=== PATIENT | female | born 1970 | race Caucasian/White ===

== ENCOUNTER 2018-02-26 13:26 | Emergency (ER) | payer MEDICAID | END 2018-02-26 17:58 | disposition left against medical advice (07) | LOC: ER 13:27 | DX: R10.9 Unspecified abdominal pain (principal); Z53.21 Procedure and treatment not carried out due to patient leaving prior to being seen by health care provider ==

== ENCOUNTER 2020-03-09 11:55 | Emergency (ER) | payer MEDICAID ==
[~2020-03-09] VITALS: Ht 162.6 cm; Wt 63.6 kg
--- NOTE | 2020-03-09 14:04 | NUR ---
bhupinder myers engged in eye assement
[2020-03-09] MEDS ORDERED: timolol 0.5% ophthalmic solution 5ml bottle LEFTEYE STA (14:22)
[2020-03-09] MEDS ORDERED: brimonidine 0.2% 5 ML ophthalmic drops LEFTEYE STA (14:22)
[2020-03-09] MEDS ORDERED: acetaZOLAMIDE IV 500mg inj IV ONE (14:25)
[2020-03-09] MEDS ORDERED: pilocarpine 2% ophthalmic drops 15ml LEFTEYE ONE (14:25)
[2020-03-09 14:27] LABS: BASOPHILS # (AUTO) 0.1 X10'3 (0-0.2); BASOPHILS % (AUTO) 1.3 % (0-1); EOSINOPHILS # (AUTO) 0.1 X10'3 (0-0.9); EOSINOPHILS % (AUTO) 2.2 % (0-6); HEMOGLOBIN 16.1 g/dl (12.0-16.0); LYMPHOCYTES # (AUTO) 1.2 X10'3 (1.1-4.8); LYMPHOCYTES % (AUTO) 23.3 % (21-51); MEAN CORPUSCULAR HEMOGLOBIN 38.1 PG (27.0-31.0); MEAN CORPUSCULAR HGB CONC 34.4 g/dL (33.0-36.5); MEAN CORPUSCULAR VOLUME 110.8 FL (78-98); MEAN PLATELET VOLUME 7.9 FL (7.4-10.4); MONOCYTES # (AUTO) 0.5 X10'3 (0-0.9); MONOCYTES % (AUTO) 10.4 % (2-12); NEUTROPHILS # (AUTO) 3.2 X10'3 (1.8-7.7); NEUTROPHILS % (AUTO) 62.8 % (42-75); PLATELET COUNT 269 X10'3 (140-440); RED BLOOD COUNT 4.24 X10'6 (4.20-5.60); RED CELL DISTRIBUTION WIDTH 13.1 % (11.5-14.5)
[2020-03-09 14:57] LABS: ALANINE AMINOTRANSFERASE 61 U/L (12-78); ALBUMIN 3.6 G/DL (3.4-5.0); ALBUMIN/GLOBULIN RATIO 0.9 (1.1-1.5); ALKALINE PHOSPHATASE 155 IU/L (46-116); ANION GAP 9 (8-16); ASPARTATE AMINO TRANSFERASE 94 U/L (10-37); BILIRUBIN,TOTAL 0.3 MG/DL (0.1-1.0); BLOOD UREA NITROGEN 5 MG/DL (7-18); BUN/CREATININE RATIO 6.9 (6.6-38.0); CALCIUM 8.7 MG/DL (8.5-10.1); CHLORIDE 107 MMOL/L (99-107); CREATININE 0.72 MG/DL (0.40-0.90); GLUCOSE 95 MG/DL (70-104); SODIUM 145 MMOL/L (135-145); TOTAL CARBON DIOXIDE 28.8 MMOL/L (24-32); TOTAL PROTEIN 7.4 G/DL (6.4-8.2); eGFR 85 ML/MIN
[2020-03-09 14:58] LABS: PLATELET ESTIMATE NORMAL
--- NOTE | 2020-03-09 15:30 | NUR ---
Per DARSHAN Rees, eye drop sequence is to be repeated 1 time before administration of acetzolamide which is to be given last, then timed for repeat tomometer assessment.
[2020-03-09] MEDS ORDERED: ACET500C47 PO (17:32)
[2020-03-09 17:49] VITALS: BP 128/87
== END 2020-03-09 17:50 | disposition home or self-care (01) ==
LOC: ER 11:56
DX: H40.2 Primary angle-closure glaucoma (principal); Z88.8 Allergy status to other drugs, medicaments and biological substances; Z79.899 Other long term (current) drug therapy
CPT/HCPCS: 36415; 70450; 80053; 85008; 85025; 85651; 96374; 99284; J1120

== ENCOUNTER 2020-09-09 12:48 | Emergency (ER) | payer MEDICAID ==
[~2020-09-09] VITALS: Ht 162.6 cm; Wt 63.6 kg
[~2020-09-09 12:48] MED LIST: ACET500C47 PO
[2020-09-09 14:06] VITALS: BP 130/83
== END 2020-09-09 21:24 | disposition left against medical advice (07) ==
LOC: ER 12:49
DX: R10.84 Generalized abdominal pain (principal); Z53.21 Procedure and treatment not carried out due to patient leaving prior to being seen by health care provider

== ENCOUNTER 2020-09-11 00:24 | Emergency (ER) | payer MEDICAID ==
[~2020-09-11] VITALS: Ht 157.5 cm; Wt 63.6 kg
[2020-09-11 00:33] VITALS: BP 145/90
== END 2020-09-11 03:40 | disposition left against medical advice (07) ==
LOC: ER 00:25
DX: R07.81 Pleurodynia (principal); Z53.21 Procedure and treatment not carried out due to patient leaving prior to being seen by health care provider

== ENCOUNTER 2021-02-27 15:27 | Emergency (ER) | payer MEDICAID ==
--- NOTE | 2021-02-27 17:36 | NUR ---
patient was called twice but not in the lobby.
== END 2021-02-27 18:14 | disposition left against medical advice (07) ==
LOC: ER 15:27
DX: Z53.21 Procedure and treatment not carried out due to patient leaving prior to being seen by health care provider (principal)

== ENCOUNTER 2022-02-23 18:01 | Emergency (ER) | payer MEDICAID ==
[~2022-02-23] VITALS: Ht 162.6 cm; Wt 68.4 kg
[2022-02-23 19:08] VITALS: BP 142/90
== END 2022-02-23 20:43 | disposition home or self-care (01) ==
LOC: ER 18:01
DX: S42.402A Unspecified fracture of lower end of left humerus, initial encounter for closed fracture (principal); W01.0XXA Fall on same level from slipping, tripping and stumbling without subsequent striking against object, initial encounter; Y93.89 Activity, other specified; Y92.89 Other specified places as the place of occurrence of the external cause; Y99.8 Other external cause status
CPT/HCPCS: 73080; 73200; 73201; 99284; 99285; A4565

== ENCOUNTER 2024-09-26 19:31 | Emergency (ER) | payer MEDICAID ==
[2024-09-26 19:38] VITALS: TEMP 96.8
--- NOTE | 2024-09-26 20:05 | Physician Documentation ---
History of Present Illness ~ Chief Complaint: Finger pain Stated Complaint: FINGER INJURY Time Seen by MD: 19:46 Primary Medical Doctor: none HPI Patient is a 54-year-old female that reports to the emergency department today for evaluation of a mechanical ground level fall sustained while running from a rattlesnake on a hill. The patient reports that she attempted to run from the rattlesnake when she tripped and fell down the hill rolling two or 3 times patient denies hitting her head reports landing on her elbow and knee along with a her right hand. Patient reports that she took a few shots of alcohol after the injury in an effort to alleviate some of the pain. 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 Physical Exam Vital Signs: Temperature: 96.8, Source: Temporal, Heart Rate: 107, Respiratory Rate: 17, BP: 135/98, Pulse Oximetry: 98 Physical Exam VITALS: Reviewed and as above. GENERAL: Alert, no apparent distress. HEENT: Normocephalic, atraumatic, PERRL, EOMI, dry mucosa, no erythema RESPIRATORY: Lungs clear, normal breath sounds, no respiratory distress. CHEST: No accessory muscle use, no retractions CV: Regular rate, rhythm, no edema, no murmur, No: JVD GI: Soft, non-tender, bowels sounds present, no rebound, guarding, or rigidity BACK: No CVA tenderness, or swelling MUSCULOSKELETAL significant deformity noted to the 2nd digit of the right hand, swelling noted to the left elbow in the left the knee, patient denies any head neck or spine tenderness SKIN: Warm and dry, abrasions noted to the left elbow in the left knee. NEURO: Oriented x4, No motor or sensory deficit PSYCH: Normal mood and affect, no agitation Procedures Procedures Manual reduction of finger Splinting Pre-Made Type: metal Splint: Pre-Proc Neuro Vasc Exam: normal Post-Proc Neuro Vasc Exam: normal Splint Placed By: Nurse Tolerated Procedure Well?: yes, no complications Procedure Note 2nd metatarsal reduction perfoemed by Dr. Modi at bedside. He has full reduction no complication. Progress Results/Orders Results/Orders Orders - CECILIA MACARIO [employer] Elbow, Complete (3vw Min) (09/26/24 19:48) Knee, Complete (09/26/24 19:48) Splint Request (09/26/24 ) Hand,Limited (Ap/Lat) (09/26/24 21:23) Completed Orders - CECILIA MACARIO [employer] Elbow, Complete (3vw Min) (09/26/24 19:48) Knee, Complete (09/26/24 19:48) Ketorolac Trometh 15mg/Ml Vial (Toradol (09/26/24 19:50) Hand,Limited (Ap/Lat) (09/26/24 21:23) Medications Received in ER Medications (Trade) Dose Ordered Sig/Briana Route PRN Reason Start Time Stop Time Status Last Admin Dose Admin ([place] 10/325mg tab) 1 tab ONCE STAT PO 09/26/24 19:36 09/26/24 19:38 DC 09/26/24 20:20 1 TAB (Toradol injection) 15 mg ONCE ONCE IM 09/26/24 19:50 09/26/24 19:51 DC 09/26/24 20:20 15 MG Vital Signs 09/26/24 09/26/24 09/26/24 19:38 20:23 20:26 Temp 96.8 Pulse 107 98 Resp 17 18 16 B/P (MAP) 135/98 131/89 (103) Pulse Ox 98 100 Medical Decision Making Findings The Pt presents with acute pain after a fall with evidence of 2nd metatarsal dislocation on XR. The Pt is otherwise well appearing without concurrent Fx, overt ligamentous tear, neurovascular injury, or compartment syndrome. Finger was reduced at bedside with oral analgesia and post reduction Xray shows successful reduction. Patient pain was controlled and patient discharged with ortho follow up. Departure Disposition: 01 HOME / SELF CARE / HOMELESS Impression: Primary Impression: Fracture of metacarpal bone Additional Impression: Dislocation of metacarpal joint Condition: Stable Referrals: NO PRIMARY CARE PROVIDER (PCP) ELENITA KERNS Education Educated: Patient Educated regarding: diagnosis, treatment, need for follow up Signature Scribe Signature: . Attestation: Scribed for Cecilia Macario by GLENNA Zapata . 09/26/24 21:45 CECILIA MACARIO Sep 26, 2024 20:05
[2024-09-26] MEDS: HYDROcodone/acetaminophen 10/325mg tab PO STA (20:20)
[2024-09-26] MEDS: ketorolac trometh 15mg/ml vial 15 MG/ML ML IM ONE (20:20)
--- NOTE | 2024-09-26 20:25 | RADIOLOGY REPORT ---
EXAMINATIONS: 3 views of the left elbow CLINICAL HISTORY: fall with pain COMPARISON: ELBOW, COMPLETE (3VW MIN) on DOS: 02/23/22 Findings and impression: No grossly displaced fractures, dislocations or bony destructive changes are evident on the provided views. If the patient has continued symptoms clinically suspicious for radiographically occult fracture, fol low-up radiographs could be obtained in 7-10 days time.
--- NOTE | 2024-09-26 20:28 | RADIOLOGY REPORT ---
EXAMINATIONS: 3 views of the right hand CLINICAL HISTORY: Finger Pain COMPARISON: None Findings and impression: Posterior and ulnar deviated dislocation of the 3rd digit at the proximal interphalangeal joint. No grossly displaced fracture fragments are evident on the provided views.
--- NOTE | 2024-09-26 20:52 | RADIOLOGY REPORT ---
EXAMINATIONS: 4 views of the left knee CLINICAL HISTORY: fall with pain COMPARISON: None Findings and impression: Plate and screw fixation hardware of the distal femur and proximal tibia. The orthopedic hardware ap pears grossly intact on the provided views. Chronic appearing deformities of the distal femur. Generalized osteopenia may be secondary to disuse . No sizable knee joint effusion. Tricompartmental arthritic changes. If the patient has continued symptoms clinically suspicious for radiographically occult fracture, fol low-up radiographs could be obtained in 7-10 days time.
--- NOTE | 2024-09-26 21:41 | RADIOLOGY REPORT ---
EXAM: DI HAND,LIMITED (AP/LAT) CLINICAL HISTORY: Post reduction right COMPARISON: None TECHNIQUE: DI HAND,LIMITED (AP/LAT) Findings/Impression: Interval reduction of the 3rd proximal interphalangeal joint with near anatomic alignment. Avulsed 3.5 mm fracture component along the volar aspect of the 3rd proximal interphalangeal joint.
[2024-09-26 22:44] VITALS: BP 134/68; PULSE 92; RESP 16; O2SAT 99
== END 2024-09-26 22:45 | disposition home or self-care (01) ==
LOC: ER 19:32
DX: S63.065A Dislocation of metacarpal (bone), proximal end of left hand, initial encounter (principal); S50.312A Abrasion of left elbow, initial encounter; W01.0XXA Fall on same level from slipping, tripping and stumbling without subsequent striking against object, initial encounter; Y93.02 Activity, running; Y92.89 Other specified places as the place of occurrence of the external cause; Y99.8 Other external cause status
CPT/HCPCS: 26605; 73080; 73120; 73140; 73564; 96372; 99284; J1885; A6449